=== PATIENT | female | born 1985 | race African-American/Black ===

== ENCOUNTER 2018-07-12 09:04 | Emergency (ER) | payer OTHER ==
[2018-07-12 09:11] VITALS: BP 128/80
[2018-07-12] MEDS ORDERED: IBUPROFEN 600 MG TAB PO ONE (09:44)
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
== END 2018-07-12 10:44 | disposition home or self-care (01) ==
DX: S16.1XXA Strain of muscle, fascia and tendon at neck level, initial encounter (principal); S46.912A Strain of unspecified muscle, fascia and tendon at shoulder and upper arm level, left arm, initial encounter; M54.5 Low back pain; G89.29 Other chronic pain; F32.9 Major depressive disorder, single episode, unspecified; K21.9 Gastro-esophageal reflux disease without esophagitis; V79.49XA Driver of bus injured in collision with other motor vehicles in traffic accident, initial encounter; Y92.410 Unspecified street and highway as the place of occurrence of the external cause; Y99.0 Civilian activity done for income or pay; Y93.9 Activity, unspecified; Z91.040 Latex allergy status